=== PATIENT | female | born 1995 | race African-American/Black ===

== ENCOUNTER 2019-07-20 23:10 | Emergency (ER) | payer BC ==
[~2019-07-20] VITALS: Ht 165.1 cm; Wt 97.5 kg
[2019-07-21 00:47] LABS: URINE BILIRUBIN NEGATIVE (Negative); URINE BLOOD NEGATIVE (Negative); URINE CLARITY CLEAR; URINE COLOR YELLOW; URINE GLUCOSE-RANDOM* NEGATIVE (Negative); URINE KETONES NEGATIVE (Negative); URINE LEUKOCYTES-REFLEX NEGATIVE (Negative); URINE NITRITE-REFLEX NEGATIVE (Negative); URINE PROTEIN (DIPSTICK) NEGATIVE (Negative); URINE SPECIFIC GRAVITY 1.025 (1.005-1.035); URINE UROBILINOGEN 0.2 E.U./dl (0.2-1.0)
[2019-07-21] MEDS ORDERED: REGLAN 5 MG TAB5 MG PO (01:51)
[2019-07-21 02:15] VITALS: BP 135/83
== END 2019-07-21 02:15 | disposition home or self-care (01) ==
LOC: ER 23:10
PROVIDERS: Emergency Medicine
DX: R51 Headache (principal); R11.10 Vomiting, unspecified; Z34.92 Encounter for supervision of normal pregnancy, unspecified, second trimester